=== PATIENT | female | born 1980 | race Caucasian/White ===

== ENCOUNTER 2020-06-01 17:45 | Emergency (ER) | payer OTHER ==
[~2020-06-01] VITALS: Ht 175.3 cm; Wt 88.5 kg
[~2020-06-01 17:45] MED LIST: ALLEGRA ALLERG180 MG PO; ASCO500 PO; BUPR150ER PO; CETI5 PO; CHOL10002 PO; CYCL10 PO; FEXPSEER PO; Flunisolide25 ML NS; HYDMOR2 PO; IBUP600 PO; LEVFLO500 PO; METPHE10 PO; METPRE4DP PO; PARO20 PO; PROM25 PO; Ultram50 MG PO
== END 2020-06-01 19:46 | disposition home or self-care (01) ==
LOC: ER 17:45
DX: S92.411A Displaced fracture of proximal phalanx of right great toe, initial encounter for closed fracture (principal); Z88.0 Allergy status to penicillin; Z88.5 Allergy status to narcotic agent; Z79.899 Other long term (current) drug therapy; W22.8XXA Striking against or struck by other objects, initial encounter
CPT/HCPCS: 73630; 99283-25